=== PATIENT | male | born 1960 | race Caucasian/White ===

== ENCOUNTER → 2017-01-11 | Outpatient (CLI) | payer MEDICARE | LOC: CT 08:06 | DX: M50.31 Other cervical disc degeneration, high cervical region (principal); M51.36 Other intervertebral disc degeneration, lumbar region; M54.2 Cervicalgia; M48.06 Spinal stenosis, lumbar region; G89.4 Chronic pain syndrome; M47.896 Other spondylosis, lumbar region; N20.0 Calculus of kidney | CPT/HCPCS: 72125; 72131 ==

== ENCOUNTER 2021-10-04 16:43 | Emergency (ER) | payer OTHER ==
[~2021-10-04 16:43] MED LIST: MECLIZINE HCL25 MG PO
[2021-10-04] MEDS ORDERED: IBUPROFEN800 MG PO (20:28)
== END 2021-10-04 20:25 | disposition home or self-care (01) ==
LOC: ER1 16:43
DX: M51.86 Other intervertebral disc disorders, lumbar region (principal); M54.50 Low back pain, unspecified; E78.5 Hyperlipidemia, unspecified; E11.9 Type 2 diabetes mellitus without complications; I10 Essential (primary) hypertension; V49.9XXA Car occupant (driver) (passenger) injured in unspecified traffic accident, initial encounter
CPT/HCPCS: 72131; 99283